=== PATIENT | female | born 1965 | race Caucasian/White ===

== ENCOUNTER → 2023-07-28 06:53 | Outpatient (REF) | payer BC, SELFPAY | LOC: WDC 06:53 | PROVIDERS: ATTENDING PHYSICIAN Obstetrics & Gynecology; FAMILY PHYSICIAN Physician Assistant Medical | DX: Z12.31 Encounter for screening mammogram for malignant neoplasm of breast (principal) | CPT/HCPCS: 77063; 77067 ==

== ENCOUNTER → 2024-07-27 09:14 | Outpatient (REF) | payer BC, SELFPAY | LOC: RAD 09:14 | PROVIDERS: ATTENDING PHYSICIAN Physician Assistant Medical | DX: E07.89 Other specified disorders of thyroid (principal) | CPT/HCPCS: 76536 ==

== ENCOUNTER → 2024-09-05 09:08 | Outpatient (REF) | payer BC, SELFPAY ==
[2024-09-05 09:15] VITALS: BP 111/76; BP_SYST 72
== END ==
LOC: RADI 09:08
PROVIDERS: ATTENDING PHYSICIAN Internal Medicine Endocrinology, Diabetes & Metabolism; FAMILY PHYSICIAN Physician Assistant Medical
DX: E04.1 Nontoxic single thyroid nodule (principal)
CPT/HCPCS: 88173; 10005